=== PATIENT | male | born 1995 | race Two or more races ===

== ENCOUNTER 2019-05-28 23:00 | Emergency (ER) | payer OTHER ==
[~2019-05-28] VITALS: Ht 177.8 cm; Wt 78.9 kg
--- NOTE | 2019-05-28 23:29 | NUR ---
Dr. Jacques at bedside for MSE.
[2019-05-28 23:41] VITALS: BP 117/88
--- NOTE | 2019-05-28 23:41 | NUR ---
Patient discharged to home in stable conditon. Written and verbal after care instructions given. Patient verbalizes understanding of instructions. Pt ambulated out of ER with steady gait, no acute signs of distress, VSS, all belongings taken.
== END 2019-05-28 23:42 | disposition home or self-care (01) ==
LOC: ER 23:10
DX: Z00.00 Encounter for general adult medical examination without abnormal findings (principal); R07.81 Pleurodynia; M54.2 Cervicalgia; R51 Headache; R20.2 Paresthesia of skin; F41.9 Anxiety disorder, unspecified
CPT/HCPCS: A4663